=== PATIENT | female | born 1990 | race Two or more races ===

== ENCOUNTER 2021-07-21 13:52 | Emergency (ER) | payer SELFPAY ==
[~2021-07-21] VITALS: Ht 165.1 cm; Wt 85.0 kg
[2021-07-21] MEDS ORDERED: ONDANSETRON ODT 4 MG TAB.RAPDIS. PO ONE (14:15)
[2021-07-21] MEDS ORDERED: HYDROcodone/APAP 5/325MG 1 TAB TABLET PO ONE (14:15)
[2021-07-21 14:28] LABS: U PREG PATIENT NEGATIVE (NEG)
[2021-07-21 14:31] LABS: BASO # 0.1 x10^3/uL (0.0-0.2); BASO % 1 % (0-3); EOS % 0 % (0-3); HEMATOCRIT 34.8 % (36.0-47.0); HEMOGLOBIN 11.8 g/dL (12.0-15.5); LYMPH # 2.6 x10^3/uL (1.0-4.8); LYMPH % 18 % (24-48); MEAN CORPUSCULAR HEMOGLOBIN 29 pg (25-35); MEAN CORPUSCULAR HGB CONC 34 g/dL (31-37); MEAN CORPUSCULAR VOLUME 87 fL (79-100); MONO # 0.8 x10^3/uL (0.0-1.1); MONO % 5 % (0-9); NEUT # 11.1 x10^3/uL (1.8-7.7); NEUT % 76 % (31-73); PLATELET COUNT 270 x10^3/uL (140-400); RED BLOOD COUNT 4.02 x10^6/uL (3.50-5.40); RED CELL DISTRIBUTION WIDTH 14.6 % (11.5-14.5); WHITE BLOOD COUNT 14.6 x10^3/uL (4.0-11.0)
[2021-07-21 14:42] LABS: CALCIUM 8.9 mg/dL (8.5-10.1); CREATININE 1.2 mg/dL (0.6-1.0); GFR 53.1; POTASSIUM 3.7 mmol/L (3.5-5.1)
[2021-07-21 14:51] LABS: ALBUMIN 3.7 g/dL (3.4-5.0); ALBUMIN/GLOBULIN RATIO 1.1 (1.0-1.7); TOTAL BILIRUBIN 0.3 mg/dL (0.2-1.0); TOTAL PROTEIN 7.2 g/dL (6.4-8.2)
--- NOTE | 2021-07-21 15:49 | RAD ---
INDICATION: Reason: LLQ pain / Spl. Instructions: / History: COMPARISON: None. TECHNIQUE: Grayscale and color ultrasound images uterus and adnexa. FINDINGS: Uterus: 89 x 58 x 36 mm. 3 mm endometrial stripe Right Ovary: 53 x 42 x 37 mm. Left Ovary: 24 x 18 x 17 mm. Vascular flow identified to bilateral ovaries. 34 mm right ovarian cyst IMPRESSION: * Right ovarian cyst is identified with vascular flow seen to the bilateral ovaries. Electronically signed by: London Ludwig MD (07/21/2021 3:47 PM) [id number]
[2021-07-21 16:30] LABS: BILIRUBIN,URINE NEGATIVE (NEG); CLARITY,URINE CLEAR; COLOR,URINE YELLOW; NITRITE,URINE NEGATIVE (NEG); PH,URINE 6.5 (<5.0-8.0); PROTEIN,URINE NEGATIVE (NEG-TRACE)
[2021-07-21 16:35] LABS: BACTERIA,URINE MANY /HPF (0-FEW)
[2021-07-21 16:36] LABS: RBC,URINE RARE /HPF (0-2); WBC,URINE 0 /HPF (0-4)
[2021-07-21 18:18] VITALS: BP 132/72
[2021-07-21] MEDS ORDERED: NAPR-514 PO (18:23)
--- NOTE | 2021-07-21 18:24 | PHYS DOC ---
Past Medical History Past Surgical History: No Surgical History General Adult EDM: Chief Complaint: ABDOMINAL PAIN HPI: HPI: Patient is a 31 year old [place]ijani-speaking female who presents to the ED today complaining of 6 out of 10 generalized pelvic pain, symptoms of been going on for 2 months. Patient states symptoms are worse on exertion especially exercising. Patient denies any chance she is , denies any concerns for STDs or any unusual vaginal discharge. Denies any urgency frequency or dysuria. Describes the pain as sharp and intermittent. Review of Systems: Review of Systems: Constitutional: Denies fever or chills. [] GI: Reports pelvic pain, denies nausea, vomiting, bloody stools or diarrhea. [] : Denies dysuria. [] Musculoskeletal: Denies back pain or joint pain. [] Integument: Denies rash. [] Neurologic: Denies headache, focal weakness or sensory changes. [] s. [] Psychiatric: Denies depression or anxiety. [] Heart Score: C/O Chest Pain: N/A Risk Factors: Risk Factors: DM, Current or recent (<one month) smoker, HTN, HLP, family history of CAD, obesity. Risk Scores: Score 0 - 3: 2.5% MACE over next 6 weeks - Discharge Home Score 4 - 6: 20.3% MACE over next 6 weeks - Admit for Clinical Observation Score 7 - 10: 72.7% MACE over next 6 weeks - Early Invasive Strategies Current Medications: Current Medications Medications (Trade) Dose Ordered Sig/Tessy Start Time Stop Time Status Last Admin Dose Admin Acetaminophen/ Hydrocodone Bitart (Lortab 5/325) 1 tab 1X ONCE 07/21/21 14:15 07/21/21 14:16 DC 07/21/21 14:15 1 TAB Ondansetron HCl (Zofran Odt) 4 mg 1X ONCE 07/21/21 14:15 07/21/21 14:16 DC 07/21/21 14:15 4 MG Allergies: Allergies: Allergies Coded Allergies Type Severity Reaction Last Updated Verified No Known Drug Allergies 07/21/21 No Physical Exam: PE: Constitutional: Well developed, well nourished, no acute distress, non-toxic appearance. Abdomen: Bowel sounds normal, soft, no tenderness, no masses, no pulsatile masses. [] Skin: Warm, dry, no erythema, no rash. [] Back: No tenderness, no CVA tenderness. [] Extremities: No tenderness, no cyanosis, no clubbing, ROM intact, no edema. [] Neurologic: Alert and oriented X 3, normal motor function, normal sensory functi on, no focal deficits noted. [] Psychologic: Affect normal, judgement normal, mood normal. [] Current Patient Data: Labs: Laboratory Tests Test 07/21/21 14:05 07/21/21 14:26 Urine Collection Type Unknown Urine Color Yellow Urine Clarity Clear Urine pH 6.5 (<5.0-8.0) Urine Specific Hinkle 1.025 (1.000-1.030) Urine Protein Negative mg/dL (NEG-TRACE) Urine Glucose (UA) Negative mg/dL (NEG) Urine Ketones (Stick) Negative mg/dL (NEG) Urine Blood Negative (NEG) Urine Nitrite Negative (NEG) Urine Bilirubin Negative (NEG) Urine Urobilinogen Dipstick 1.0 mg/dL (0.2 mg/dL) Urine Leukocyte Esterase Negative (NEG) Urine RBC Rare /HPF (0-2) Urine WBC 0 /HPF (0-4) Urine Squamous Epithelial Cells Many /LPF Urine Bacteria Many /HPF (0-FEW) Urine Mucus Slight /LPF Urine Test Negative (NEG) White Blood Count 14.6 x10^3/uL (4.0-11.0) H Red Blood Count 4.02 x10^6/uL (3.50-5.40) Hemoglobin 11.8 g/dL (12.0-15.5) L Hematocrit 34.8 % (36.0-47.0) L Mean Corpuscular Volume 87 fL (79-100) Mean Corpuscular Hemoglobin 29 pg (25-35) Mean Corpuscular Hemoglobin Concent 34 g/dL (31-37) Red Cell Distribution Width 14.6 % (11.5-14.5) H Platelet Count 270 x10^3/uL (140-400) Neutrophils (%) (Auto) 76 % (31-73) H Lymphocytes (%) (Auto) 18 % (24-48) L Monocytes (%) (Auto) 5 % (0-9) Eosinophils (%) (Auto) 0 % (0-3) Basophils (%) (Auto) 1 % (0-3) Neutrophils # (Auto) 11.1 x10^3/uL (1.8-7.7) H Lymphocytes # (Auto) 2.6 x10^3/uL (1.0-4.8) Monocytes # (Auto) 0.8 x10^3/uL (0.0-1.1) Eosinophils # (Auto) 0.0 x10^3/uL (0.0-0.7) Basophils # (Auto) 0.1 x10^3/uL (0.0-0.2) Sodium Level 144 mmol/L (136-145) Potassium Level 3.7 mmol/L (3.5-5.1) Chloride Level 109 mmol/L (98-107) H Carbon Dioxide Level 26 mmol/L (21-32) Anion Gap 9 (6-14) Blood Urea Nitrogen 13 mg/dL (7-20) Creatinine 1.2 mg/dL (0.6-1.0) H Estimated GFR (Cockcroft-Gault) 53.1 BUN/Creatinine Ratio 11 (6-20) Glucose Level 91 mg/dL (70-99) Calcium Level 8.9 mg/dL (8.5-10.1) Total Bilirubin 0.3 mg/dL (0.2-1.0) Aspartate Amino Transferase (AST) 35 U/L (15-37) Alanine Aminotransferase (ALT) 27 U/L (14-59) Alkaline Phosphatase 67 U/L (46-116) Total Protein 7.2 g/dL (6.4-8.2) Albumin 3.7 g/dL (3.4-5.0) Albumin/Globulin Ratio 1.1 (1.0-1.7) Lipase 179 U/L (73-393) Laboratory Tests 07/21/21 14:26 Laboratory Tests 07/21/21 14:26 Vital Signs: Vital Signs Date Time Temp Pulse Resp B/P (MAP) Pulse Ox O2 Delivery O2 Flow Rate FiO2 07/21/21 18:18 68 15 132/72 (92) 97 Room Air 07/21/21 14:04 98.1 98.1 EKG: EKG: [] Radiology/Procedures: Radiology/Procedures: []PROCEDURE: PELVIS COMPLETE INDICATION: Reason: LLQ pain / Spl. Instructions: / History: COMPARISON: None. TECHNIQUE: Grayscale and color ultrasound images uterus and adnexa. FINDINGS: Uterus: 89 x 58 x 36 mm. 3 mm endometrial stripe Right Ovary: 53 x 42 x 37 mm. Left Ovary: 24 x 18 x 17 mm. Vascular flow identified to bilateral ovaries. 34 mm right ovarian cyst IMPRESSION: * Right ovarian cyst is identified with vascular flow seen to the bilateral ovaries. Electronically signed by: London Ludwig MD (07/21/2021 3:47 PM) [id number] DICTATED and SIGNED BY: LONDON LUDWIG MD DATE: 07/21/21 [id number] 0 Course & Med Decision Making: Course & Med Decision Making Pertinent Labs and Imaging studies reviewed. (See chart for details) This is a 31-year-old female patient presenting to the ED today complaining of low back pain, symptoms for 2 months. Negative urine hCG, CBC CMP with no acute findings, UA negative for infection. Pelvic ultrasound noted for 3.4 cm right ovarian cyst with flow to bilateral ovaries. Spoke to patient using irs agent line. Recommended following up with an [employer]. Heating pad also recommended today pelvic region. Discharged with n aproxen. Dr[place] Disclaimer: Dragon Disclaimer: This electronic medical record was generated, in whole or in part, using a voice recognition dictation system. Departure Departure Impression: Primary Impression: Ovarian cyst, right Disposition: 01 HOME / SELF CARE / HOMELESS Condition: STABLE Referrals: NO PCP (PCP) NANO ALBERT MD follow up in 1-2 weeks Patient Instructions: Ovarian Cyst, [id number] Additional Instructions: You have right ovarian cyst that needs to be followed up with the provided [employer]. Please call his office in the next 1 to 2 weeks and set up a follow-up appointment. Apply a heating pad on your abdomen as needed for the pain. Take the prescribed medications as needed for pain. Scripts Naproxen (NAPROXEN) 500 Mg Tablet 1 TAB PO BID for pain, #20 TAB 0 Refills Prov: ALICE PRAKASH APRN 07/21/21 ALICE PRAKASH APRN Jul 21, 2021 18:23
== END 2021-07-21 18:51 | disposition home or self-care (01) ==
LOC: ER 13:52
DX: N83.201 Unspecified ovarian cyst, right side (principal)
CPT/HCPCS: 36415; 76856; 80053; 81001; 81025; 83690; 85025; 87086; 99284-25